=== PATIENT | female | born 1995 | race Two or more races ===

== ENCOUNTER 2019-08-23 16:24 | Inpatient (IN) | payer BC, OTHER ==
[2019-08-23 17:56] VITALS: BMI 18.0
--- NOTE | 2019-08-23 19:27 | HP ---
COWS - Scale Resting Pulse: 1= [place] 81-100 Sweatin=Flushed/Facial Moisture Restless Observation: 1= Difficult to Sit Still Pupil Size: 1= Pupils >than Normal Bone or Joint Aches: 2= Severe Diffuse Aches Runny Nose/ Eye Tearin= Runny Nose/Eyes GI Upset > 30mins: 2= Nausea/Diarrhea (diarrhea x 3) Tremor Observation: 2= Slight Tremor Visible Yawning Observation: 1= 1-2x During Session Anxiety or Irritability: 2=Irritable/Anxious Goose Flesh Skin: 3=Piloerection COWS Score: 19 CIWA Score - Admission Criteria OASAS Guidelines: Admission for Medically Managed Detox: Requires at least one of the followin. CIWA greater than 12 2. Seizures within the past 24 hours 3. Delirium tremens within the past 24 hours 4. Hallucinations within the past 24 hours 5. Acute intervention needed for co occurring medical disorder 6. Acute intervention needed for co occurring psychiatric disorder 7. Severe withdrawal that cannot be handled at a lower level of care (continued vomiting, continued diarrhea, abnormal vital signs) requiring intravenous medication and/or fluids 8. Admission ROS [facility] Chief Complaint: Heroin withdrawal symptoms Allergies/Adverse Reactions: Allergies Allergy/AdvReac Type Severity Reaction Status Date / Time No Known Allergies Allergy Verified 08/23/19 17:56 History of Present Illness: 23 years old female with 6 months of heroin dependence is seeking admission to detox. This her first detoxification and first admission to [facility]. Patient reports that she was introduced to heroine by her boyfriend who is currently in detox in [place]. She denies medical history, psychiatric history, suicide attempt and suicidal ideation at this time. She is anon smoker. Confidential Drug Utilization Report Search Terms: maria eugenia ferrara, 1995 Search Date: 08/23/2019 07:44:31 PM The Drug Utilization Report below displays all of the controlled substance prescriptions, if any, that your patient has filled in the last twelve months. The information displayed on this report is compiled from pharmacy submissions to the Department, and accurately reflects the information as submitted by the pharmacies. There are no results for the search terms that you entered. Exam Limitations: No Limitations - Ebola screening Have you traveled outside of the country in the last 21 days: No (N) Have you had contact with anyone from an Ebola affected area: No Do you have a fever: No - Review of Systems Constitutional: Chills, Loss of Appetite, Malaise, Night Sweats, Changes in sleep EENT: reports: Nose Congestion Respiratory: reports: Cough, Other (sneezing) Cardiac: reports: No Symptoms Reported GI: reports: Diarrhea, Nausea, Poor Appetite, Poor Fluid Intake, Abdominal cramping : reports: No Symptoms Reported Musculoskeletal: reports: Back Pain, Joint Pain, Muscle Pain Integumentary: reports: Dryness, Flushing Neuro: reports: Tremors Endocrine: reports: No Symptoms Reported Hematology: reports: No Symptoms Reported Psychiatric: reports: Judgement Intact, Mood/Affect Appropiate, Orientated x3, Anxious Other Systems: Reviewed and Negative Patient History - Patient Medical History Hx Anemia: No Hx Asthma: No Hx Chronic Obstructive Pulmonary Disease (COPD): No Hx Cancer: No Hx Cardiac Disorders: No Hx Congestive Heart Failure: No Hx Hypertension: No Hx Hypercholesterolemia: No Hx Pacemaker: No HX Cerebrovascular Accident: No Hx Seizures: No Hx Dementia: No Hx Diabetes: No Hx Gastrointestinal Disorders: No Hx Liver Disease: No Hx Genitourinary Disorders: No Hx Sexually Transmitted Disorders: No Hx Renal Disease (ESRD): No Hx Thyroid Disease: No Hx Human Immunodeficiency Virus (HIV): No (Negative 2018) Hx Hepatitis C: No Hx Depression: No Hx Suicide Attempt: No (Denies suicide attempt and suicidal ideation at this time) Hx Bipolar Disorder: No Hx Schizophrenia: No - Patient Surgical History Past Surgical History: No - PPD History Previous Implant?: Yes (PPD POSITIVE. No TREATMENT) Documented Results: Positive w/o proof Implanted On Prior R Admission?: No PPD to be Administered?: No - Reproductive History Patient is a Female of Child Bearing Age (11 -55 yrs old): Yes Last Menstrual Period: 08/22/19 Patient : No - Smoking Cessation Smoking history: Never smoked Have you smoked in the past 12 months: No Hx Chewing Tobacco Use: No Initiated information on smoking cessation: No - Substance & Tx. History Hx Alcohol Use: No Hx Substance Use: Yes Substance Use Type: Heroin Hx Substance Use Treatment: No - Substances abused Heroin Substance route: Injection Frequency: Daily Amount used: 3 to 4 bags Age of first use: 23 Date of last use: 08/22/19 Other Other (specify): percocet Substance route: Oral Frequency: 1-3 times last 30 days Amount used: 15 mg po Age of first use: 23 Date of last use: 08/23/19 Admission Physical Exam [facility] - Vital Signs Vital Signs: Vital Signs - 24 hr 08/23/19 17:51 Temperature 97.7 F Pulse Rate 91 H Respiratory 18 Rate Blood Pressure 117/68 - Physical General Appearance: Yes: Moderate Distress, Tremorous, Sweating HEENTM: Yes: Nasal Congestion Respiratory: Yes: Lungs Clear, Normal Breath Sounds, No Respiratory Distress Neck: Yes: Supple Breast: Yes: Breast Exam Deferred Cardiology: Yes: Regular Rhythm, Regular Rate Abdominal: Yes: Normal Bowel Sounds, Soft Genitourinary: Yes: Within Normal Limits Back: Yes: Normal Inspection Musculoskeletal: Yes: Back pain, Muscle Pain Extremities: Yes: Tremors Neurological: Yes: Alert, Motor Strength 5/5, Normal Mood/Affect Integumentary: Yes: Warm Lymphatic: Yes: Within Normal Limits - Diagnostic (1) Opioid dependence with withdrawal Current Visit: Yes Status: Acute Cleared for Admission [facility] - Detox or Rehab [facility] Level of Care: Medically Managed Detox Regimen/Protocol: Methadone Breathalyzer - Breathalyzer Breathalyzer: 0 Urine Drug Screen - Test Device Lot number: [id number] Expiration date: 03/28/21 - Control Is test valid?: Yes - Results Drug screen NEGATIVE: No Urine drug screen results: MOP-Opiates, OXY-Oxycodone Inpatient Rehab Admission - Rehab Decision to Admit Inpatient rehab admission?: No
[2019-08-23] MEDS ORDERED: MENTHOL/PHENOL 1 EACH UD MM PRN (19:36)
[2019-08-23] MEDS ORDERED: MAGNESIUM CITRATE 300 ML BOTTLE PO PRN (19:36)
[2019-08-23] MEDS ORDERED: cloNIDine HCL 0.1 MG TABLET PO PRN (19:36)
[2019-08-23] MEDS ORDERED: ACETAMINOPHEN 325 MG TABLET (FP) PO PRN ×2 (19:36)
[2019-08-23] MEDS ORDERED: MAG HYDROX/AL HYDROX/SIMETH 30 ML UNIT-DOSE CUP PO PRN (19:36)
[2019-08-23] MEDS ORDERED: MAGNESIUM HYDROX 2400MG/30ML ORAL SUSPENSION 30 ML CUP PO PRN (19:36)
[2019-08-23] MEDS ORDERED: METHADONE HCL 10 MG TABLET (FOR DETOX USE ONLY) PO ONE (19:36)
[2019-08-23] MEDS ORDERED: IBUPROFEN 400 MG TABLET (FP) PO PRN (19:36)
[2019-08-23] MEDS: THIAMINE HCL 100 MG TABLET (FP) PO SCH (21:08)
[2019-08-23] MEDS: BISMUTH SUBSALICYLATE 524 MG/30 ML UD PO PRN (21:45)
[2019-08-23] MEDS: MELATONIN 5 MG TABLETS PO PRN (21:46)
[2019-08-23] MEDS: hydrOXYzine PAMOATE 25 MG CAPSULE (FP) PO PRN (23:21)
[2019-08-23] MEDS: METHOCARBAMOL 500 MG TABLET PO PRN (23:23)
[2019-08-24] MEDS ORDERED: METHADONE HCL 5 MG TABLET (FOR DETOX USE ONLY) PO ONE (10:00)
[2019-08-24 10:22] LABS: HEMATOCRIT 36.1 % (32.4-45.2); HEMOGLOBIN 12.2 GM/dL (10.7-15.3); MCH 28.6 pg (25.7-33.7); MCHC 33.8 g/dl (32.0-36.0); MEAN CELL VOLUME 84.5 fl (80-96); MEAN PLT VOLUME 7.6 fl (7.5-11.1); PLATELET COUNT 377 K/MM3 (134-434); RBC 4.27 M/mm3 (3.60-5.2); WHITE BLOOD COUNT 8.6 K/mm3 (4.0-10.0)
[2019-08-24] MEDS: PRENATAL VITAMINS W/ FOLIC ACID TABLET (FP) PO SCH (10:30)
[2019-08-24] MEDS: METHOCARBAMOL 500 MG TABLET PO PRN ×2 (10:30→22:21)
[2019-08-24 10:31] LABS: ALBUMIN 3.4 g/dl (3.4-5.0); BILIRUBIN,TOTAL 0.5 mg/dL (0.2-1); BLOOD UREA NITROGEN 12.4 mg/dL (7-18); CALCIUM 9.7 mg/dL (8.5-10.1); CREATININE 0.6 mg/dL (0.55-1.3); POTASSIUM 4.2 mmol/L (3.5-5.1); TOT PROT 7.4 g/dl (6.4-8.2)
--- NOTE | 2019-08-24 13:29 | EKG ---
Test Reason : Blood Pressure : / mmHG Vent. Rate : 059 BPM Atrial Rate : 059 BPM P-R Int : 130 ms QRS Dur : 090 ms QT Int : 446 ms P-R-T Axes : 020 069 048 degrees QTc Int : 441 ms SINUS BRADYCARDIA INCOMPLETE RBBB NO PREVIOUS ECGS AVAILABLE Confirmed by VANNA TOLBERT MD ([id number]) on 08/24/2019 1:29:02 PM Referred By: Confirmed By:VANNA TOLBERT MD
--- NOTE | 2019-08-24 13:48 | PN ---
BHS COWS - Scale Resting Pulse: 1= [place] 81-100 Sweatin= Chills/Flushing Restless Observation: 1= Difficult to Sit Still Pupil Size: 0= Normal to Room Light Bone or Joint Aches: 2= Severe Diffuse Aches Runny Nose/ Eye Tearin= Nasal Congestion GI Upset > 30mins: 0= None Tremor Observation of Outstretched Hands: 2= Slight Tremor Visible Yawning Observation: 2= >3x During Session Anxiety or Irritability: 2=Irritable/Anxious Goose Flesh Skin: 0=Smooth Skin COWS Score: 12 BHS Progress Note (SOAP) Subjective: body aches diarrhea sweats shakes irritable agitation Objective: 08/24/19 13:47 Vital Signs Temperature 97.2 F L 08/24/19 09:31 Pulse Rate 86 08/24/19 09:31 Respiratory Rate 18 08/24/19 09:31 Blood Pressure 117/62 08/24/19 09:31 O2 Sat by Pulse Oximetry (%) Laboratory Tests 08/24/19 08/24/19 08/24/19 07:40 07:40 07:40 WBC 8.6 RBC 4.27 Hgb 12.2 Hct 36.1 MCV 84.5 MCH 28.6 MCHC 33.8 RDW 13.0 Plt Count 377 MPV 7.6 Sodium 139 Potassium 4.2 Chloride 106 Carbon Dioxide 27 Anion Gap 5 L BUN 12.4 Creatinine 0.6 Est GFR (CKD-EPI)AfAm 146.83 Est GFR (CKD-EPI)NonAf 126.68 Random Glucose 92 Calcium 9.7 Total Bilirubin 0.5 AST 23 ALT 34 Alkaline Phosphatase 64 Total Protein 7.4 Albumin 3.4 RPR Titer Nonreactive aaox3 ambulating no acute distress Assessment: 08/24/19 13:47 withdrawals Plan: continue detox pepto prn
[2019-08-24] MEDS: BISMUTH SUBSALICYLATE 524 MG/30 ML UD PO PRN (14:54)
[2019-08-24] MEDS: hydrOXYzine PAMOATE 25 MG CAPSULE (FP) PO PRN (22:21)
[2019-08-24] MEDS: THIAMINE HCL 100 MG TABLET (FP) PO SCH (22:21)
[2019-08-24] MEDS: MELATONIN 5 MG TABLETS PO PRN (22:21)
[2019-08-25] MEDS: PRENATAL VITAMINS W/ FOLIC ACID TABLET (FP) PO SCH (09:24)
[2019-08-25] MEDS ORDERED: METHADONE HCL 10 MG TABLET (FOR DETOX USE ONLY) PO ONE (10:00)
--- NOTE | 2019-08-25 17:18 | PN ---
BHS COWS - Scale Resting Pulse: 0= [place] 80 or Below Sweatin= No chills or Flushing Restless Observation: 1= Difficult to Sit Still Pupil Size: 1= Pupils >than Normal Bone or Joint Aches: 2= Severe Diffuse Aches Runny Nose/ Eye Tearin= None GI Upset > 30mins: 0= None Tremor Observation of Outstretched Hands: 0= None Yawning Observation: 1= 1-2x During Session Anxiety or Irritability: 2=Irritable/Anxious Goose Flesh Skin: 0=Smooth Skin COWS Score: 7 BHS Progress Note (SOAP) Subjective: Body Aches, Sweating, Anxious. Objective: PATIENT A & O X 3, OBSERVED AMBULATING ON DETOX UNIT UNASSISTED. IN NO ACUTE DISTRESS. 08/25/19 17:16 Vital Signs Temperature 98.1 F 08/25/19 13:33 Pulse Rate 67 08/25/19 13:33 Respiratory Rate 16 08/25/19 13:33 Blood Pressure 117/63 08/25/19 13:33 O2 Sat by Pulse Oximetry (%) Laboratory Tests 08/24/19 08/24/19 08/24/19 07:40 07:40 07:40 WBC 8.6 RBC 4.27 Hgb 12.2 Hct 36.1 MCV 84.5 MCH 28.6 MCHC 33.8 RDW 13.0 Plt Count 377 MPV 7.6 Sodium 139 Potassium 4.2 Chloride 106 Carbon Dioxide 27 Anion Gap 5 L BUN 12.4 Creatinine 0.6 Est GFR (CKD-EPI)AfAm 146.83 Est GFR (CKD-EPI)NonAf 126.68 Random Glucose 92 Calcium 9.7 Total Bilirubin 0.5 AST 23 ALT 34 Alkaline Phosphatase 64 Total Protein 7.4 Albumin 3.4 RPR Titer Nonreactive LABS NOTED. Assessment: 08/25/19 17:17 WITHDRAWAL SYMPTOMS. Plan: CONTINUE DETOX. PATIENT SCHEDULED FOR D/C FROM DETOX UNIT TOMORROW.
[2019-08-25] MEDS: METHOCARBAMOL 500 MG TABLET PO PRN ×2 (19:19→22:44)
[2019-08-25] MEDS: MELATONIN 5 MG TABLETS PO PRN (22:44)
[2019-08-25] MEDS: hydrOXYzine PAMOATE 25 MG CAPSULE (FP) PO PRN (22:44)
[2019-08-25] MEDS: THIAMINE HCL 100 MG TABLET (FP) PO SCH (22:44)
[2019-08-26] MEDS ORDERED: METHADONE HCL 5 MG TABLET (FOR DETOX USE ONLY) PO ONE (06:00)
[2019-08-26] MEDS: PRENATAL VITAMINS W/ FOLIC ACID TABLET (FP) PO SCH (11:45)
[2019-08-26] MEDS: METHOCARBAMOL 500 MG TABLET PO PRN (12:48)
[2019-08-26] MEDS: hydrOXYzine PAMOATE 25 MG CAPSULE (FP) PO PRN ×2 (12:48→22:07)
--- NOTE | 2019-08-26 16:33 | PN ---
BHS COWS - Scale Resting Pulse: 1= [place] 81-100 Sweatin= No chills or Flushing Restless Observation: 1= Difficult to Sit Still Pupil Size: 0= Normal to Room Light Bone or Joint Aches: 1= Mild Discomfort Runny Nose/ Eye Tearin= None GI Upset > 30mins: 1= Stomach Cramp Tremor Observation of Outstretched Hands: 0= None Yawning Observation: 0= None Anxiety or Irritability: 2=Irritable/Anxious Goose Flesh Skin: 0=Smooth Skin COWS Score: 6 BHS Progress Note (SOAP) Subjective: Anxious, restless, interrupted sleep, tingling/pins in fingers, arms fall asleep at night for past couple of nights. Patient instructed to follow up with PCP post discharge for further evaluation of her arms/fingers. Patient requesting to be discharged tomorrow instead of today due to increase withdrawal sxs. Objective: 08/26/19 16:31 Last Vital Signs Temp Pulse Resp BP Pulse Ox 97.6 F 89 18 108/62 08/26/19 13:43 08/26/19 13:43 08/26/19 13:43 08/26/19 13:43 Laboratory Tests 08/24/19 08/24/19 08/24/19 07:40 07:40 07:40 WBC 8.6 RBC 4.27 Hgb 12.2 Hct 36.1 MCV 84.5 MCH 28.6 MCHC 33.8 RDW 13.0 Plt Count 377 MPV 7.6 Sodium 139 Potassium 4.2 Chloride 106 Carbon Dioxide 27 Anion Gap 5 L BUN 12.4 Creatinine 0.6 Est GFR (CKD-EPI)AfAm 146.83 Est GFR (CKD-EPI)NonAf 126.68 Random Glucose 92 Calcium 9.7 Total Bilirubin 0.5 AST 23 ALT 34 Alkaline Phosphatase 64 Total Protein 7.4 Albumin 3.4 RPR Titer Nonreactive Labs reviewed Assessment: 08/26/19 16:32 Withdrawal sxs Plan: Continue detox Encouraged PO water intake Vistaril increased to 50mg q6hr prn anxiety/withdrawal sxs Methadone 5 mg PO x 1 tomorrow at 0600 Patient scheduled for discharge home tomorrow
[2019-08-26] MEDS: THIAMINE HCL 100 MG TABLET (FP) PO SCH (22:09)
[2019-08-27] MEDS ORDERED: METHADONE HCL 5 MG TABLET (FOR DETOX USE ONLY) PO ONE (06:00)
[2019-08-27] MEDS ORDERED: METHADONE HCL 10 MG TABLET (FOR DETOX USE ONLY) PO ONE (06:00)
[2019-08-27] MEDS: METHOCARBAMOL 500 MG TABLET PO PRN (06:11)
[2019-08-27] MEDS: hydrOXYzine PAMOATE 25 MG CAPSULE (FP) PO PRN (08:04)
--- NOTE | 2019-08-27 08:57 | DS ---
[facility] Detox Discharge Summary Admission Date: 08/23/19 Discharge Date: 08/27/19 - History Present History: Opioid Dependence - Physical Exam Results Vital Signs: Vital Signs Temperature 97.9 F 08/27/19 06:58 Pulse Rate 66 08/27/19 06:58 Respiratory Rate 16 08/27/19 06:58 Blood Pressure 102/55 L 08/27/19 06:58 O2 Sat by Pulse Oximetry (%) Pertinent Admission Physical Exam Findings: Vital Signs Temperature 97.9 F 08/27/19 06:58 Pulse Rate 66 08/27/19 06:58 Respiratory Rate 16 08/27/19 06:58 Blood Pressure 102/55 L 08/27/19 06:58 O2 Sat by Pulse Oximetry (%) Laboratory Tests 08/24/19 08/24/19 08/24/19 07:40 07:40 07:40 WBC 8.6 RBC 4.27 Hgb 12.2 Hct 36.1 MCV 84.5 MCH 28.6 MCHC 33.8 RDW 13.0 Plt Count 377 MPV 7.6 Sodium 139 Potassium 4.2 Chloride 106 Carbon Dioxide 27 Anion Gap 5 L BUN 12.4 Creatinine 0.6 Est GFR (CKD-EPI)AfAm 146.83 Est GFR (CKD-EPI)NonAf 126.68 Random Glucose 92 Calcium 9.7 Total Bilirubin 0.5 AST 23 ALT 34 Alkaline Phosphatase 64 Total Protein 7.4 Albumin 3.4 RPR Titer Nonreactive aaox3 ambulating no acute distress - Treatment Hospital Course: Detox Protocol Followed, Detoxed Safely, Responded well, Discharged Condition Good, Rehab Referral Accepted Patient has Accepted a Rehab Referral to: referred to [facility] OTP - Medication Discharge Medications: Ambulatory Orders NK [No Known Home Medication] 08/23/19 - Diagnosis (1) Opioid dependence with withdrawal Current Visit: Yes Status: Chronic - AMA Did Patient Leave Against Medical Advice: No
[2019-08-27 09:19] VITALS: BP 125/77; PULSE 93; TEMP 98.1
[2019-08-27] MEDS: PRENATAL VITAMINS W/ FOLIC ACID TABLET (FP) PO SCH (10:15)
== END 2019-08-27 11:22 | disposition other institution (70) | DRG 897 ==
LOC: YASAS 16:24 → Y6N 20:20
PROVIDERS: ADMIT Allergy & Immunology; ATTEND Allergy & Immunology
PROC: HZ2ZZZZ Detoxification Services for Substance Abuse Treatment (ICD-10-PCS; principal; 2019-08-23)
DX: F11.23 Opioid dependence with withdrawal (principal)
CPT/HCPCS: 36415; 71046-TC-FY; 80053; 85027; 86593; 93005; 93010

== ENCOUNTER 2019-08-27 11:41 | Inpatient (IN) | payer OTHER ==
[2019-08-27 13:02] VITALS: TEMP 98.3
--- NOTE | 2019-08-27 16:36 | HP ---
[facility] Rehab Assess/Revision - Admission History Admitted to Rehab from: [facility] Date of Admission to Rehab: 08/27/2019 - Vital signs Vital Signs: Vital Signs Period Temp Pulse Resp BP Sys/Dave Pulse Ox Last 24 Hr 98.3 F 101 18 97/59 - Findings Detox History & Physical reviewed: Yes Concur with findings: Yes Comments/Additional Findings: Patient admitted after completing opioid detox. Labs reviewed. No significant medical or psychiatric hx. No alcohol, nicotine hx of other illicit substance use. Inpatient Rehab Admission - Rehab Decision to Admit Inpatient rehab admission?: Yes - Initial Determination Are CD services needed?: Yes Free of communicable disease: Yes Not in need of hospitalization: Yes - Rehab Admission Criteria Previous failed treatment: Yes Poor recovery environment: Yes Comorbidities: No Lacks judgement: No Patient is meeting Inpatient Rehab admission criteria:: Yes
[2019-08-27] MEDS ORDERED: MELATONIN 5 MG TABLETS PO PRN (22:00)
[2019-08-27] MEDS ORDERED: IBUPROFEN 400 MG TABLET (FP) PO PRN (22:42)
[2019-08-27] MEDS ORDERED: MAG HYDROX/AL HYDROX/SIMETH 30 ML UNIT-DOSE CUP PO PRN (22:42)
[2019-08-27] MEDS ORDERED: P-EPHED 60MG/TRIPROLIDI 2.5MG TABLET PO PRN (22:42)
[2019-08-27] MEDS ORDERED: LOPERAMIDE HCL 2 MG CAPSULE PO PRN (22:42)
[2019-08-27] MEDS ORDERED: guaiFENesin 200 MG/10 ML 10 ML UNIT-DOSE CUPS PO PRN (22:42)
[2019-08-27] MEDS ORDERED: ACETAMINOPHEN 325 MG TABLET (FP) PO PRN (22:42)
[2019-08-27] MEDS ORDERED: MAGNESIUM CITRATE 300 ML BOTTLE PO PRN (22:42)
[2019-08-27] MEDS ORDERED: hydrOXYzine PAMOATE 25 MG CAPSULE (FP) PO PRN (22:42)
[2019-08-27] MEDS ORDERED: MAGNESIUM HYDROX 2400MG/30ML ORAL SUSPENSION 30 ML CUP PO PRN (22:42)
[2019-08-27] MEDS ORDERED: MENTHOL/PHENOL 1 EACH UD MM PRN (22:42)
[2019-08-28 07:03] VITALS: BP 107/72; PULSE 75
--- NOTE | 2019-08-28 09:00 | PN ---
S Progress Note Note: Pt is a 23 y/o female with a hx of Heroin dependence admitted to rehab after [facility] treatment. Pt c/o muscla aches and anxiety. Pt states she is open to giving suboxone-MAT a try for heroin addiction. reports she has never been on suboxone. Pt also inquired about vivitrol and initial information was explained to patient. Vital Signs - 24 hr 08/27/19 08/28/19 08/28/19 13:01 00:30 03:30 Temperature 98.3 F Pulse Rate 101 H Respiratory 18 16 16 Rate Blood Pressure 97/59 L 08/28/19 07:02 Temperature 98.3 F Pulse Rate 75 Respiratory 18 Rate Blood Pressure 107/72 alert o x 3 nad oob ambulating with steady gait A/P New Rehab pt Opioid use disorder protracted w/s Increase po fluids Robaxin 500 mg po tid prn for muscle spasms Vistaril 50 mg po q4h prn for anxiety/agitations D/w pt she will f/u with counselor to discuss aftercare and possible Soboxone site referral and will initiate while in rehab.
--- NOTE | 2019-08-28 09:02 | PREP.REFER ---
HIV PrEP/PEP - PrEP HIV Risk Assessment When was your last HIV test?: 2018 HIV Test offered: Refused Are you concerned about any sexual encounters past 6 months?: No Have you had a STI in the last 6 months?: No Have you shared needles or other equipment?: Yes Are you interested in daily medication to help prevent HIV?: No (Pt is open to education on PrEP) Recommendation: Consider PrEP referral
[2019-08-28] MEDS ORDERED: METHOCARBAMOL 500 MG TABLET PO PRN (09:04)
[2019-08-28] MEDS ORDERED: hydrOXYzine PAMOATE 50 MG CAPSULE (FP) PO PRN (09:05)
[2019-08-28] MEDS ORDERED: PRENATAL VITAMINS W/ FOLIC ACID TABLET (FP) PO SCH (10:00)
--- NOTE | 2019-08-28 11:59 | DS ---
[facility] Rehab Discharge Summary - [facility] Rehab Discharge Summary Admission Date: 08/27/19 Discharge Date: 08/28/19 - History Present History: Opioid dependence Additional Comments: Pt was admitted yesterday from detox but requesting to leave treatment stating she has things to do at home-"bills, credit card and taking responsibility". Pt has been set up to continue CD aftercare at [facility] after rehab and states she will follow up at [facility] and possibly start Vivitrol with [facility]. 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 Pt has a Bachelors degree and articulates self very well. Pt declined the poc discussed this morning to consider starting MAT while in rehab as well as resolve protracted withdrawal sx after detox. pt states she will follow up with her primary care provider, Dr. Bassett in [place], [place]. Pertinent Past History: Denies - Discharge Physical Exam Vital Signs: Vital Signs Temperature 98.3 F 08/28/19 07:02 Pulse Rate 75 08/28/19 07:02 Respiratory Rate 18 08/28/19 07:02 Blood Pressure 107/72 08/28/19 07:02 O2 Sat by Pulse Oximetry (%) Alert o x 3 nad oob ambulating with steady gait cardiac:s1 s2,rrr lungs:cta,kirti. abdomen:soft,flat,+bs,nt extremities/skin:no edema,full ROM,skin intact. Pertinent Admission Physical Exam Findings: Unchanged from admission - Treatment Discharge Condition: Discharge condition good Hospital Course: Safety maintained - Medication Discharge Medications: Ambulatory Orders NK [No Known Home Medication] 08/23/19 - Medication-Assisted Treatment (MAT) Medication-Assisted Treatment (MAT): No - Discharge Instructions Diet, activity, other medical instructions: Diet:Regular Activity: oob ad pal Other medical instructions:follow up with your primary care provider, Dr. Bassett within 1 week after discharge. follow up with CD aftercare at [facility] as scheduled. - Diagnosis (1) Opioid use disorder Current Visit: Yes Status: Chronic - Follow-up Referral Minutes to complete discharge: 20 - AMA Did Patient Leave Against Medical Advice: Yes Additional Comments: Encouraged pt to seek MAT treatment at [facility] and informed pt will follow up with [facility] provider re-MAT treatment.
[2019-08-28] MEDS ORDERED: THIAMINE HCL 100 MG TABLET (FP) PO SCH (22:00)
== END 2019-08-28 11:56 | disposition left against medical advice (07) | DRG 894 ==
LOC: YASAS 11:41 → Y3E 11:51
PROVIDERS: ADMIT Neuromusculoskeletal Medicine & OMM; ATTEND Neuromusculoskeletal Medicine & OMM
PROC: HZ42ZZZ Group Counseling for Substance Abuse Treatment, Cognitive-Behavioral (ICD-10-PCS; principal; 2019-08-27)
DX: F11.20 Opioid dependence, uncomplicated (principal)

== ENCOUNTER 2019-10-29 13:22 | Inpatient (IN) | payer OTHER ==
--- NOTE | 2019-10-29 14:06 | BHS.RME ---
Substance Use & Tx History - Substance Use History Opiates (Heroin) Substance amount: 5-6 bags Frequency of use: Daily Substance route: Injection (ex: intravenous or skin popping) Date of Last Use: 10/28/19 Physical/Psych/Mental Status - Behavior General Behavior: Increased activity (restlessness, agitation) Eye Contact: Normal - Cooperativeness Cooperativeness: Cooperative - Thinking Thought Processes: Tight Thought content: Future oriented - Physical Health Problems Is patient presently having any pain?: No Does patient presently have any injuries (include location): No Does patient currently have a fever: No COWS - Scale Resting Pulse: 2= [place] 101-120 Sweatin= Chills/Flushing Restless Observation: 1= Difficult to Sit Still Pupil Size: 1= Pupils >than Normal Bone or Joint Aches: 2= Severe Diffuse Aches Runny Nose/ Eye Tearin= Runny Nose/Eyes GI Upset > 30mins: 0= None Tremor Observation: 1= Tremor [place], Not Seen Yawning Observation: 1= 1-2x During Session Anxiety or Irritability: 1=Feels Anxious/Irritable Goose Flesh Skin: 0=Smooth Skin COWS Score: 12
[2019-10-29 15:12] VITALS: BMI 17.8
--- NOTE | 2019-10-29 15:45 | HP ---
COWS - Scale Resting Pulse: 2= [place] 101-120 Sweatin=Flushed/Facial Moisture Restless Observation: 1= Difficult to Sit Still Pupil Size: 1= Pupils >than Normal Bone or Joint Aches: 2= Severe Diffuse Aches Runny Nose/ Eye Tearin= Runny Nose/Eyes GI Upset > 30mins: 2= Nausea/Diarrhea Tremor Observation: 0= None Yawning Observation: 1= 1-2x During Session Anxiety or Irritability: 1=Feels Anxious/Irritable Goose Flesh Skin: 3=Piloerection COWS Score: 17 CIWA Score - Admission Criteria OASAS Guidelines: Admission for Medically Managed Detox: Requires at least one of the followin. CIWA greater than 12 2. Seizures within the past 24 hours 3. Delirium tremens within the past 24 hours 4. Hallucinations within the past 24 hours 5. Acute intervention needed for co occurring medical disorder 6. Acute intervention needed for co occurring psychiatric disorder 7. Severe withdrawal that cannot be handled at a lower level of care (continued vomiting, continued diarrhea, abnormal vital signs) requiring intravenous medication and/or fluids 8. Admitting History and Physical - Admission History of Present Illness: PCP: Dr. Bassett in [place] Pt presents seeking detox. Was at another facility, [facility], earlier today, but there was no availability for detox there. Heroin: First use 12/2018. Last use yesterday. Uses 5-6 bags daily. Injects. Began using when her boyfriend had a relapse. 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 Is not working presently, but would like to work as a school counselor or psychologist. States she has a narcan kit at home, which she has not had to use. Cocaine: First use: 12/2018 Last: 1 month ago. Injects. No tobacco use. Left AMA from rehab last time she was here. States detox went smoothly but the atmosphere at rehab was not amenable to her improvement. Pt goes to [facility] weekly, though she has missed her last couple of visits. Complains of tingling and numbness of thumb, index, and middle fingers b/l. Does not do a lot of typing or repetitive movements with her hands. Has used suboxone in the past but did not tolerate it well. Had GI upset. PMH: b/l carpal tunnel (self-diagnosed) PSH: none FH: mother with carpal tunnel, sister with thyroid problems Psych: none Meds: none All: none Soc: Lives in an apartment with her boyfriend. Sexually active. Does not use protection. Not on contraception. Does not intend to get . Did not get her flu shot this year. - Past Medical History ...LMP: 08/20/19 Psych: Yes: Addictions - Smoking History Smoking history: Never smoked Have you smoked in the past 12 months: No - Alcohol/Substance Use Hx Alcohol Use: No History of Substance Use: reports: Cocaine, Heroin - Social History ADL: Family Assistance Admission [facility] Allergies/Adverse Reactions: Allergies Allergy/AdvReac Type Severity Reaction Status Date / Time No Known Allergies Allergy Verified 10/29/19 15:08 Patient History - Patient Medical History Hx Anemia: No Hx Asthma: No Hx Chronic Obstructive Pulmonary Disease (COPD): No Hx Cancer: No Hx Cardiac Disorders: No Hx Congestive Heart Failure: No Hx Hypertension: No Hx Hypercholesterolemia: No Hx Pacemaker: No HX Cerebrovascular Accident: No Hx Seizures: No Hx Dementia: No Hx Diabetes: No Hx Gastrointestinal Disorders: No Hx Liver Disease: No Hx Genitourinary Disorders: No Hx Sexually Transmitted Disorders: No Hx Renal Disease (ESRD): No Hx Thyroid Disease: No Hx Human Immunodeficiency Virus (HIV): No (Negative 2018) Hx Hepatitis C: No Hx Depression: No Hx Suicide Attempt: No Hx Bipolar Disorder: No Hx Schizophrenia: No - Patient Surgical History Past Surgical History: No Hx Neurologic Surgery: No Hx Cataract Extraction: No Hx Cardiac Surgery: No Hx Lung Surgery: No Hx Breast Surgery: No Hx Breast Biopsy: No Hx Abdominal Surgery: No Hx Appendectomy: No Hx Cholecystectomy: No Hx Genitourinary Surgery: No Hx Section: No Hx Orthopedic Surgery: No - PPD History Previous Implant?: Yes Documented Results: Positive w/o proof - Reproductive History Last Menstrual Period: 08/20/19 - Smoking Cessation Smoking history: Never smoked Have you smoked in the past 12 months: No Hx Chewing Tobacco Use: No - Substances abused Heroin Substance route: Injection Frequency: Daily Amount used: 6 BAGS Age of first use: 23 Date of last use: 10/28/19 Admission Physical Exam BHS - Vital Signs Vital Signs: Vital Signs - 24 hr 10/29/19 15:10 Temperature 97.5 F L Pulse Rate 109 H Respiratory 18 Rate Blood Pressure 123/71 - Physical General Appearance: Yes: Nourished, Anxious HEENTM: Yes: Within Normal Limits, EOMI, Hearing grossly Normal Respiratory: Yes: Within Normal Limits, Chest Non-Tender, Lungs Clear Neck: Yes: Within Normal Limits Cardiology: Yes: Within Normal Limits, Regular Rhythm, S1, S2. No: Regular Rate (tachycardic) Abdominal: Yes: Within Normal Limits, Normal Bowel Sounds, Non Tender, Flat, Soft Musculoskeletal: Yes: Within Normal Limits, full range of Motion, Gait Steady Extremities: No: Within Normal Limits (Many injection sites along dorsal and posterior aspects) Cleared for Admission [facility] - Detox or Rehab [facility] Level of Care: Medically Managed Breathalyzer - Breathalyzer Breathalyzer: 0 Urine Drug Screen - Test Device Lot number: [id number] Expiration date: 07/28/21 - Control Is test valid?: Yes - Results Drug screen NEGATIVE: No Urine drug screen results: FEN-Fentanyl, MOP-Opiates Inpatient Rehab Admission - Rehab Decision to Admit Inpatient rehab admission?: No
[2019-10-29] MEDS ORDERED: cloNIDine HCL 0.1 MG TABLET PO PRN (16:03)
[2019-10-29] MEDS ORDERED: ONDANSETRON *ODT* 4 MG TABLET SL ONE (16:03)
[2019-10-29] MEDS ORDERED: MAG HYDROX/AL HYDROX/SIMETH 30 ML UNIT-DOSE CUP PO PRN (16:03)
[2019-10-29] MEDS ORDERED: MAGNESIUM HYDROX 2400MG/30ML ORAL SUSPENSION 30 ML CUP PO PRN (16:03)
[2019-10-29] MEDS ORDERED: BISMUTH SUBSALICYLATE 524 MG/30 ML UD PO PRN (16:03)
[2019-10-29] MEDS ORDERED: MAGNESIUM CITRATE 300 ML BOTTLE PO PRN (16:03)
[2019-10-29] MEDS ORDERED: MENTHOL/PHENOL 1 EACH UD MM PRN (16:03)
[2019-10-29] MEDS ORDERED: ACETAMINOPHEN 325 MG TABLET (FP) PO PRN ×2 (16:03)
[2019-10-29] MEDS ORDERED: METHADONE HCL 10 MG TABLET (FOR DETOX USE ONLY) PO ONE (16:30)
[2019-10-29] MEDS: METHOCARBAMOL 500 MG TABLET PO PRN ×2 (17:04→22:05)
[2019-10-29] MEDS: hydrOXYzine PAMOATE 25 MG CAPSULE (FP) PO SCH ×2 (18:18→22:05)
[2019-10-29] MEDS: THIAMINE HCL 100 MG TABLET (FP) PO SCH (22:05)
[2019-10-29] MEDS: MELATONIN 5 MG TABLETS PO SCH (22:05)
[2019-10-30] MEDS: hydrOXYzine PAMOATE 25 MG CAPSULE (FP) PO SCH ×5 (06:09→21:24)
[2019-10-30] MEDS ORDERED: METHADONE HCL 10 MG TABLET (FOR DETOX USE ONLY) ONE (09:05)
[2019-10-30] MEDS ORDERED: METHADONE HCL 5 MG TABLET (FOR DETOX USE ONLY) ONE (09:05)
[2019-10-30] MEDS ORDERED: METHADONE (DETOX) 20 MG, METHADONE (DETOX) 5 MG PO ONE (10:00)
[2019-10-30] MEDS: PRENATAL VITAMINS W/ FOLIC ACID TABLET (FP) PO SCH (10:10)
[2019-10-30] MEDS: METHOCARBAMOL 500 MG TABLET PO PRN ×2 (10:13→21:24)
[2019-10-30 10:20] LABS: HEMATOCRIT 33.3 % (32.4-45.2); HEMOGLOBIN 11.5 GM/dL (10.7-15.3); MCHC 34.6 g/dl (32.0-36.0); MEAN CELL VOLUME 83.8 fl (80-96); MEAN PLT VOLUME 7.4 fl (7.5-11.1); PLATELET COUNT 357 K/MM3 (134-434); RBC 3.98 M/mm3 (3.60-5.2); RDW 13.9 % (11.6-15.6); WHITE BLOOD COUNT 8.6 K/mm3 (4.0-10.0)
[2019-10-30 10:43] LABS: ALBUMIN 3.4 g/dl (3.4-5.0); BILIRUBIN,TOTAL 0.5 mg/dL (0.2-1); BLOOD UREA NITROGEN 11.4 mg/dL (7-18); CALCIUM 9.9 mg/dL (8.5-10.1); CREATININE 0.7 mg/dL (0.55-1.3); POTASSIUM 4.8 mmol/L (3.5-5.1); TOT PROT 7.5 g/dl (6.4-8.2)
--- NOTE | 2019-10-30 13:34 | PN ---
BHS COWS - Scale Resting Pulse: 2= [place] 101-120 Sweatin= Chills/Flushing Restless Observation: 1= Difficult to Sit Still Pupil Size: 0= Normal to Room Light Bone or Joint Aches: 2= Severe Diffuse Aches Runny Nose/ Eye Tearin= Nasal Congestion GI Upset > 30mins: 0= None Tremor Observation of Outstretched Hands: 1= Tremor [place], Not Seen Yawning Observation: 2= >3x During Session Anxiety or Irritability: 2=Irritable/Anxious Goose Flesh Skin: 0=Smooth Skin COWS Score: 12 BHS Progress Note (SOAP) Subjective: sweats shakes interrupted sleep body aces chills Objective: 10/30/19 13:33 Vital Signs Temperature 98.3 F 10/30/19 08:41 Pulse Rate 104 H 10/30/19 08:41 Respiratory Rate 17 10/30/19 08:41 Blood Pressure 116/67 10/30/19 08:41 O2 Sat by Pulse Oximetry (%) Laboratory Tests 10/29/19 10/30/19 10/30/19 14:54 07:30 07:30 WBC 8.6 RBC 3.98 Hgb 11.5 Hct 33.3 MCV 83.8 MCH 29.0 MCHC 34.6 RDW 13.9 Plt Count 357 MPV 7.4 L Sodium 141 Potassium 4.8 Chloride 107 Carbon Dioxide 27 Anion Gap 7 L BUN 11.4 Creatinine 0.7 Est GFR (CKD-EPI)AfAm 139.57 Est GFR (CKD-EPI)NonAf 120.42 Random Glucose 98 Calcium 9.9 Total Bilirubin 0.5 AST 28 ALT 32 Alkaline Phosphatase 57 Total Protein 7.5 Albumin 3.4 TSH 0.08 L POC Urine HCG, Qual Negative RPR Titer 10/30/19 07:30 WBC RBC Hgb Hct MCV MCH MCHC RDW Plt Count MPV Sodium Potassium Chloride Carbon Dioxide Anion Gap BUN Creatinine Est GFR (CKD-EPI)AfAm Est GFR (CKD-EPI)NonAf Random Glucose Calcium Total Bilirubin AST ALT Alkaline Phosphatase Total Protein Albumin TSH POC Urine HCG, Qual RPR Titer Nonreactive labs noted TSH shows 0.08L; pt is not hypothyrodism aaox3 ambulating no acute distress Assessment: 10/30/19 13:34 withdrawals Plan: continue detox increase fluids
[2019-10-30] MEDS: THIAMINE HCL 100 MG TABLET (FP) PO SCH (21:24)
[2019-10-30] MEDS: MELATONIN 5 MG TABLETS PO SCH (21:24)
[2019-10-31] MEDS: hydrOXYzine PAMOATE 25 MG CAPSULE (FP) PO SCH ×5 (05:55→22:19)
[2019-10-31] MEDS ORDERED: METHADONE HCL 10 MG TABLET (FOR DETOX USE ONLY) PO ONE (10:00)
[2019-10-31] MEDS: PRENATAL VITAMINS W/ FOLIC ACID TABLET (FP) PO SCH (10:39)
[2019-10-31] MEDS: METHOCARBAMOL 500 MG TABLET PO PRN ×2 (10:40→22:20)
--- NOTE | 2019-10-31 12:05 | PN ---
BHS COWS - Scale Resting Pulse: 1= [place] 81-100 Sweatin= Chills/Flushing Restless Observation: 1= Difficult to Sit Still Pupil Size: 0= Normal to Room Light Bone or Joint Aches: 2= Severe Diffuse Aches Runny Nose/ Eye Tearin= Nasal Congestion GI Upset > 30mins: 0= None Tremor Observation of Outstretched Hands: 1= Tremor [place], Not Seen Yawning Observation: 1= 1-2x During Session Anxiety or Irritability: 1=Feels Anxious/Irritable Goose Flesh Skin: 0=Smooth Skin COWS Score: 9 BHS Progress Note (SOAP) Subjective: sweats shakes chills Objective: 10/31/19 12:05 Vital Signs Temperature 98.4 F 10/31/19 08:44 Pulse Rate 91 H 10/31/19 08:44 Respiratory Rate 16 10/31/19 08:44 Blood Pressure 122/69 10/31/19 08:44 O2 Sat by Pulse Oximetry (%) Laboratory Tests 10/29/19 10/30/19 10/30/19 14:54 07:30 07:30 WBC 8.6 RBC 3.98 Hgb 11.5 Hct 33.3 MCV 83.8 MCH 29.0 MCHC 34.6 RDW 13.9 Plt Count 357 MPV 7.4 L Sodium 141 Potassium 4.8 Chloride 107 Carbon Dioxide 27 Anion Gap 7 L BUN 11.4 Creatinine 0.7 Est GFR (CKD-EPI)AfAm 139.57 Est GFR (CKD-EPI)NonAf 120.42 Random Glucose 98 Calcium 9.9 Total Bilirubin 0.5 AST 28 ALT 32 Alkaline Phosphatase 57 Total Protein 7.5 Albumin 3.4 TSH 0.08 L POC Urine HCG, Qual Negative RPR Titer 10/30/19 07:30 WBC RBC Hgb Hct MCV MCH MCHC RDW Plt Count MPV Sodium Potassium Chloride Carbon Dioxide Anion Gap BUN Creatinine Est GFR (CKD-EPI)AfAm Est GFR (CKD-EPI)NonAf Random Glucose Calcium Total Bilirubin AST ALT Alkaline Phosphatase Total Protein Albumin TSH POC Urine HCG, Qual RPR Titer Nonreactive aaox3 ambulating no acute distress Assessment: 10/31/19 12:06 withdrawals Plan: continue detox
[2019-10-31] MEDS: MELATONIN 5 MG TABLETS PO SCH (22:20)
[2019-10-31] MEDS: THIAMINE HCL 100 MG TABLET (FP) PO SCH (22:20)
[2019-10-31] MEDS: IBUPROFEN 400 MG TABLET (FP) PO PRN (22:21)
[2019-11-01] MEDS: hydrOXYzine PAMOATE 25 MG CAPSULE (FP) PO SCH ×2 (07:50→10:18)
[2019-11-01] MEDS ORDERED: METHADONE HCL 5 MG TABLET (FOR DETOX USE ONLY) ONE (09:12)
[2019-11-01] MEDS ORDERED: METHADONE HCL 10 MG TABLET (FOR DETOX USE ONLY) ONE (09:13)
[2019-11-01] MEDS ORDERED: METHADONE (DETOX) 10 MG, METHADONE (DETOX) 5 MG PO ONE (10:00)
[2019-11-01] MEDS: PRENATAL VITAMINS W/ FOLIC ACID TABLET (FP) PO SCH (10:18)
[2019-11-01] MEDS ORDERED: hydrOXYzine PAMOATE 25 MG CAPSULE (FP) PO PRN (10:25)
--- NOTE | 2019-11-01 10:28 | PN ---
BHS COWS - Scale Resting Pulse: 1= [place] 81-100 Sweatin= Chills/Flushing Restless Observation: 1= Difficult to Sit Still Pupil Size: 0= Normal to Room Light Bone or Joint Aches: 0= None Runny Nose/ Eye Tearin= None GI Upset > 30mins: 0= None Tremor Observation of Outstretched Hands: 1= Tremor [place], Not Seen Yawning Observation: 0= None Anxiety or Irritability: 2=Irritable/Anxious Goose Flesh Skin: 0=Smooth Skin COWS Score: 6 BHS Progress Note (SOAP) Subjective: sweats anxiety irritable Objective: 11/01/19 10:27 Vital Signs Temperature 98.1 F 11/01/19 05:15 Pulse Rate 70 11/01/19 05:15 Respiratory Rate 16 11/01/19 05:15 Blood Pressure 110/69 11/01/19 05:15 O2 Sat by Pulse Oximetry (%) aaox3 ambulating no acute distress Assessment: 11/01/19 10:27 withdrawals Plan: continue detox valium 10mg prn x 2 days
[2019-11-01] MEDS: diazePAM 5 MG TABLET PO PRN ×2 (12:01→22:27)
[2019-11-01] MEDS: METHOCARBAMOL 500 MG TABLET PO PRN (20:05)
[2019-11-01] MEDS: MELATONIN 5 MG TABLETS PO SCH (22:23)
[2019-11-01] MEDS: THIAMINE HCL 100 MG TABLET (FP) PO SCH (22:24)
[2019-11-02] MEDS: diazePAM 5 MG TABLET PO PRN ×3 (05:43→21:52)
[2019-11-02] MEDS: METHOCARBAMOL 500 MG TABLET PO PRN ×3 (05:44→18:20)
[2019-11-02] MEDS ORDERED: METHADONE HCL 10 MG TABLET (FOR DETOX USE ONLY) PO ONE (10:00)
[2019-11-02] MEDS: PRENATAL VITAMINS W/ FOLIC ACID TABLET (FP) PO SCH (10:34)
--- NOTE | 2019-11-02 11:22 | PN ---
BHS COWS - Scale Resting Pulse: 1= [place] 81-100 Sweatin= Chills/Flushing Restless Observation: 1= Difficult to Sit Still Pupil Size: 0= Normal to Room Light Bone or Joint Aches: 1= Mild Discomfort Runny Nose/ Eye Tearin= None GI Upset > 30mins: 0= None Tremor Observation of Outstretched Hands: 0= None Yawning Observation: 0= None Anxiety or Irritability: 0= None Goose Flesh Skin: 0=Smooth Skin COWS Score: 4 BHS Progress Note (SOAP) Subjective: feeling better little anxiety Objective: 11/02/19 11:21 Vital Signs Temperature 97 F L 11/02/19 06:34 Pulse Rate 72 11/02/19 06:34 Respiratory Rate 16 11/02/19 06:34 Blood Pressure 103/62 11/02/19 06:34 O2 Sat by Pulse Oximetry (%) aaox3 ambulating no acute distress Assessment: 11/02/19 11:21 mild withdrawals Plan: continue detox d/c in am
[2019-11-02] MEDS: IBUPROFEN 400 MG TABLET (FP) PO PRN (11:31)
[2019-11-02] MEDS: MELATONIN 5 MG TABLETS PO SCH (21:21)
[2019-11-02] MEDS: THIAMINE HCL 100 MG TABLET (FP) PO SCH (21:21)
[2019-11-03] MEDS: METHOCARBAMOL 500 MG TABLET PO PRN (05:23)
[2019-11-03] MEDS ORDERED: METHADONE HCL 5 MG TABLET (FOR DETOX USE ONLY) PO ONE (06:00)
--- NOTE | 2019-11-03 08:12 | DS ---
[facility] Detox Discharge Summary Admission Date: 10/29/19 Discharge Date: 11/03/19 - History Present History: Opioid Dependence Additional Comments: alert,oriented x 3 ambulation on the unit no abdominal pain no swelling of the extremities stable for discharge total time for discharge 30 mins follow up [facility] schedule - Physical Exam Results Vital Signs: Vital Signs Temperature 98.1 F 11/03/19 05:20 Pulse Rate 76 11/03/19 05:20 Respiratory Rate 16 11/03/19 05:20 Blood Pressure 112/66 11/03/19 05:20 O2 Sat by Pulse Oximetry (%) Pertinent Admission Physical Exam Findings: withdrawal signs and symptom Laboratory Last Values WBC 8.6 K/mm3 (4.0-10.0) 10/30/19 07:30 RBC 3.98 M/mm3 (3.60-5.2) 10/30/19 07:30 Hgb 11.5 GM/dL (10.7-15.3) 10/30/19 07:30 Hct 33.3 % (32.4-45.2) 10/30/19 07:30 MCV 83.8 fl (80-96) 10/30/19 07:30 MCH 29.0 pg (25.7-33.7) 10/30/19 07:30 MCHC 34.6 g/dl (32.0-36.0) 10/30/19 07:30 RDW 13.9 % (11.6-15.6) 10/30/19 07:30 Plt Count 357 K/MM3 (134-434) 10/30/19 07:30 MPV 7.4 fl (7.5-11.1) L 10/30/19 07:30 Sodium 141 mmol/L (136-145) 10/30/19 07:30 Potassium 4.8 mmol/L (3.5-5.1) 10/30/19 07:30 Chloride 107 mmol/L (98-107) 10/30/19 07:30 Carbon Dioxide 27 mmol/L (21-32) 10/30/19 07:30 Anion Gap 7 MMOL/L (8-16) L 10/30/19 07:30 BUN 11.4 mg/dL (7-18) 10/30/19 07:30 Creatinine 0.7 mg/dL (0.55-1.3) 10/30/19 07:30 Est GFR (CKD-EPI)AfAm 139.57 10/30/19 07:30 Est GFR (CKD-EPI)NonAf 120.42 10/30/19 07:30 Random Glucose 98 mg/dL (74-106) 10/30/19 07:30 Calcium 9.9 mg/dL (8.5-10.1) 10/30/19 07:30 Total Bilirubin 0.5 mg/dL (0.2-1) 10/30/19 07:30 AST 28 U/L (15-37) 10/30/19 07:30 ALT 32 U/L (13-61) 10/30/19 07:30 Alkaline Phosphatase 57 U/L (45-117) 10/30/19 07:30 Total Protein 7.5 g/dl (6.4-8.2) 10/30/19 07:30 Albumin 3.4 g/dl (3.4-5.0) 10/30/19 07:30 TSH 0.08 uIU/ml (0.358-3.74) L 10/30/19 07:30 POC Urine HCG, Qual Negative 10/29/19 14:54 RPR Titer Nonreactive (NONREACTIVE) 10/30/19 07:30 Vital Signs Temperature 98.1 F 11/03/19 05:20 Pulse Rate 76 11/03/19 05:20 Respiratory Rate 16 11/03/19 05:20 Blood Pressure 112/66 11/03/19 05:20 O2 Sat by Pulse Oximetry (%) - Treatment Hospital Course: Detox Protocol Followed, Detoxed Safely - Medication Discharge Medications: Ambulatory Orders NK [No Known Home Medication] 10/29/19 - AMA Did Patient Leave Against Medical Advice: No
--- NOTE | 2019-11-03 08:12 | PN ---
BHS COWS - Scale Resting Pulse: 0= [place] 80 or Below Sweatin= No chills or Flushing Restless Observation: 0= Sits Still Pupil Size: 0= Normal to Room Light Bone or Joint Aches: 0= None Runny Nose/ Eye Tearin= None GI Upset > 30mins: 0= None Tremor Observation of Outstretched Hands: 0= None Yawning Observation: 0= None Anxiety or Irritability: 1=Feels Anxious/Irritable Goose Flesh Skin: 0=Smooth Skin COWS Score: 1 BHS Progress Note (SOAP) Subjective: alert,ianxious Objective: 11/03/19 08:10 Vital Signs Temperature 98.1 F 11/03/19 05:20 Pulse Rate 76 11/03/19 05:20 Respiratory Rate 16 11/03/19 05:20 Blood Pressure 112/66 11/03/19 05:20 O2 Sat by Pulse Oximetry (%) Assessment: 11/03/19 08:10 detox completed,no withdrawal symptom Plan: discharge today,follow up with after care program as arrangement
[2019-11-03 10:38] VITALS: BP 117/75; PULSE 100; TEMP 97.9
== END 2019-11-03 10:05 | disposition home or self-care (01) | DRG 897 ==
LOC: YASAS 13:22 → Y6N 16:11
PROVIDERS: ADMIT Allergy & Immunology; ATTEND Allergy & Immunology
PROC: HZ2ZZZZ Detoxification Services for Substance Abuse Treatment (ICD-10-PCS; principal; 2019-10-29)
DX: F11.23 Opioid dependence with withdrawal (principal); Z56.0 Unemployment, unspecified
CPT/HCPCS: 36415; 80053; 81025; 84443; 85027; 86593